=== PATIENT | female | born 1985 | race African-American/Black ===

== ENCOUNTER 2017-09-07 22:04 | Emergency (ER) | payer MEDICAID ==
[~2017-09-07] VITALS: Ht 167.6 cm; Wt 92.6 kg
[~2017-09-07 22:04] MED LIST: CYCL-36 PO; IBUP-232 PO
[2017-09-07 22:10] VITALS: BP 137/87; PULSE 88; RESP 16; TEMP 98.7; O2SAT 99
[2017-09-07] MEDS ORDERED: LIDOCAINE HCL 1% PF 30 ML VIAL XX ONE (22:45)
[2017-09-07] MEDS ORDERED: DOXY100C PO (23:25)
[2017-09-07] MEDS ORDERED: TRAM50TA PO (23:25)
[2017-09-07 23:30] VITALS: BP 142/83; PULSE 88; RESP 14; O2SAT 99
--- NOTE | 2017-09-07 23:31 | PD ---
HPI Chief Complaint: Manager Property Problem/Complaint Time Seen by Provider: 22:20 Travel History International Travel<30 days: No Contact w/Intl Traveler<30days: No Traveled to known affect area: No History of Present Illness HPI The patient was seen and examined in the presence of the nurse. This patient complains of some vaginal discharge and pelvic pain. Location of pain is bilateral lower quadrant. Denies fever. She does not think she is . Symptoms severity is moderate. No alleviating factors. No exacerbating factors. Duration 3 days PFSH Past Medical History Diminished Hearing: No Immunizations Current: No LMP: LAST WEEK : 4 Para: 4 Social History Alcohol Use: No Tobacco Use: No Substance Use: No Allergies-Medications (Allergen,Severity, Reaction): Coded Allergies: No Known Allergies (Verified , 09/07/17) Reported Meds & Prescriptions Reported Meds & Active Scripts Active Doxycycline Hyclate 100 Mg Cap 100 Mg PO BID Tramadol (Tramadol HCl) 50 Mg Tab 50 Mg PO Q6H PRN Review of Systems General / Constitutional: No: Fever Eyes: No: Visual changes HENT: No: Headaches Cardiovascular: No: Chest Pain or Discomfort Respiratory: No: Shortness of Breath Gastrointestinal: No: Abdominal Pain Genitourinary: Positive: Pelvic Pain, Discharge, No: Dysuria Musculoskeletal: No: Pain Skin: No Rash Neurologic: No: Weakness Psychiatric: No: Depression Endocrine: No: Polydipsia Hematologic/Lymphatic: No: Easy Bruising Physical Exam Narrative GENERAL: Well-nourished, well-developed patient in no apparent distress. SKIN: Focused skin assessment reveals no rash and nodules. Skin is Warm and dry. HEAD: Atraumatic. Normocephalic. EYES: Pupils equal and round. No scleral icterus. No injection or drainage. ENT: No nasal bleeding or discharge. Mucous membranes pink and moist. NECK: Trachea midline. No JVD. CARDIOVASCULAR: Regular rate and rhythm. No murmur appreciated. RESPIRATORY: No accessory muscle use. Clear to auscultation. Breath sounds equal bilaterally. GASTROINTESTINAL: Abdomen soft, non-tender, nondistended. Hepatic and splenic margins not palpable. MUSCULOSKELETAL: No obvious deformities. No clubbing. No cyanosis. No edema. NEUROLOGICAL: Awake and alert. No obvious cranial nerve deficits. Motor grossly within normal limits. Normal speech. PSYCHIATRIC: Appropriate mood and affect; insight and judgment normal. Pelvic: Is positive cervical motion tenderness. Brownish discharge in the vault. No adnexal mass noted Data Data Last Documented VS Vital Signs Date Time Temp Pulse Resp B/P (MAP) Pulse Ox O2 Delivery O2 Flow Rate FiO2 09/07/17 23:30 88 14 142/83 (102) 99 Room Air 09/07/17 22:10 98.7 Orders Orders Ceftriaxone Inj (Rocephin Inj) (09/07/17 22:45) Lidocaine Pf 1% Inj (Xylocaine-Mpf 1% In (09/07/17 22:45) Gc And Chlamydia Pcr (09/07/17 22:41) Ed Discharge Order (09/08/17 00:08) Labs Laboratory Tests Test 09/07/17 22:35 [facility] Medical Decision Making Medical Screen Exam Complete: Yes Emergency Medical Condition: Yes Medical Record Reviewed: Yes Differential Diagnosis PID,ectopic, vaginitis Narrative Course I have reviewed the patient's electronic medical record. Urine is negative Presentation is consistent with PID I gave her injection of Rocephin and 1 week of doxycycline and some tramadol for pain relief Soft benign abdomen Stable for outpatient follow-up Diagnosis Primary Impression: PID (acute pelvic inflammatory disease) Additional Instructions: The patient was advised to follow up with their physician and return if they worsen. The patient was warned about potential sedation for the medications they will receive on prescription. Med/Other Pt SpecificInfo: Prescription(s) given Scripts Doxycycline Hyclate (Doxycycline Hyclate) 100 Mg Cap 100 MG PO BID for Infection, #14 CAP 0 Refills Prov: Naveen Zambrano MD 09/07/17 Tramadol (Tramadol) 50 Mg Tab 50 MG PO Q6H Y for PAIN, #15 TAB 0 Refills Prov: Naveen Zambrano MD 09/07/17 Disposition: 01 DISCHARGE HOME Condition: Stable Naveen Zambrano MD Sep 07, 2017 23:31
== END 2017-09-08 00:25 | disposition home or self-care (01) ==
LOC: PHED 22:04
DX: N73.9 Female pelvic inflammatory disease, unspecified (principal)
CPT/HCPCS: 87491; 87591; 96372; 99284; J0696